=== PATIENT | female | born 1990 | race Caucasian/White ===

== ENCOUNTER 2020-10-22 15:05 | Emergency (ER) | payer OTHER ==
[~2020-10-22 15:05] MED LIST: MACROBID 100 M100 MG PO; ZOFRAN ODT 4 MG4 MG PO
== END 2020-10-22 17:40 | disposition home or self-care (01) ==
LOC: ER1 15:05
DX: O9A.511 Psychological abuse complicating pregnancy, first trimester (principal); O99.341 Other mental disorders complicating pregnancy, first trimester; F32.9 Major depressive disorder, single episode, unspecified; Z59.0 Homelessness; Z79.899 Other long term (current) drug therapy; Y07.03 Male partner, perpetrator of maltreatment and neglect; Z3A.09 9 weeks gestation of pregnancy; Z20.822 Contact with and (suspected) exposure to COVID-19
CPT/HCPCS: 99284; U0002